=== PATIENT | male | born 1945 | race Caucasian/White ===

== ENCOUNTER 2018-04-26 13:15 | Inpatient (IN) | payer OTHER ==
[~2018-04-26] VITALS: Ht 170.2 cm; Wt 107.8 kg
[2018-04-26 15:57] VITALS: BP 108/64
[2018-04-26 15:59] LABS: APPEARANCE,URINE Clear (CLEAR); BILIRUBIN,URINE Negative (NEGATIVE); COLOR,URINE Dark Yellow (YELLOW); GLUCOSE, URINE (UA) Negative (NEGATIVE); KETONES,URINE Trace mg/dL (NEGATIVE); LEUKOCYTE ESTERASE ,URINE Negative (NEGATIVE); NITRATE,URINE Negative (NEGATIVE); OCCULT BLOOD,URINE Negative (NEGATIVE); PROTEIN,URINE Trace (NEGATIVE)
[2018-04-26 16:10] LABS: INR 1.28 (0.85-1.15); PARTIAL THROMBOPLASTIN TIME 29.4 SEC (26.3-35.5); PROTHROMBIN TIME 13.4 SEC (9.6-11.6)
[2018-04-26 16:20] LABS: BACTERIA,URINE None Seen /HPF (None Seen); MUCUS,URINE Few LPF (None Seen); RBC,URINE None Seen /HPF (0-1); SQUAMOUS EPITHELIAL CELL,UR 0-2 /HPF (0-2); WBC,URINE None Seen /HPF (0-1)
[2018-04-26] MEDS ORDERED: [UNRECOGNIZED DRUG - CODE] PO (16:20)
[2018-04-26] MEDS ORDERED: WARF2.5T47 PO (16:20)
[2018-04-26] MEDS ORDERED: WARF2.5T85 PO (16:20)
[2018-04-26] MEDS ORDERED: MELO-106 PO (16:20)
[2018-04-26] MEDS ORDERED: LOSA100T20 PO (16:20)
[2018-04-26] MEDS ORDERED: ASPI-555 PO (16:20)
[2018-04-26] MEDS ORDERED: PROP60TA20 PO (16:20)
[2018-04-26] MEDS ORDERED: DIGO125T17 PO (16:20)
[2018-04-29] VITALS (21 sets, daily range): BP systolic 97–144; BP diastolic 54–104
[2018-04-29] MEDS ORDERED: CEFAZOLIN 3GM /D5W 100ML 100 ML IV SCH (06:00)
[2018-04-29] MEDS ORDERED: CEFAZOLIN SODIUM 1 GM VIAL ONE ×3 (07:01→08:10)
[2018-04-29] MEDS ORDERED: LACTATED RINGERS 1000ML 1,000 ML IV ONE (07:01)
[2018-04-29] MEDS ORDERED: THROMBIN-JMI 5000 UNIT/VIAL TP ONE (07:38)
[2018-04-29] MEDS ORDERED: LIDOCAINE PF 2% 5ML ABBOJECT ONE (07:47)
[2018-04-29] MEDS ORDERED: SUCCINYLCHOLINE CHLORIDE 20 MG/ML 10 ML VIAL ONE (07:47)
[2018-04-29] MEDS ORDERED: FENTANYL CITRATE PF 50 MCG/1 ML 2ML VIAL ONE ×2 (07:47→10:21)
[2018-04-29] MEDS ORDERED: PROPOFOL 10 MG/ML 20ML VIAL IV ONE (07:47)
[2018-04-29] MEDS ORDERED: ROCURONIUM 10MG/1ML SYR 10 MG/ML ML ONE (07:47)
[2018-04-29] MEDS ORDERED: ROPIVACAINE 0.5% 5MG/ML 30ML IJ ONE (07:52)
[2018-04-29] MEDS ORDERED: DEXAMETHASONE SOD PHOSPHATE 4 MG/ML 1ML VIAL ONE ×2 (07:53→07:54)
[2018-04-29] MEDS ORDERED: GLYCOPYRROLATE 1 MG/5 ML SYRINGE ONE (08:34)
[2018-04-29] MEDS ORDERED: BUPIVACAINE/EPI/PF 0.25% 30ML VIAL IJ ONE (08:37)
[2018-04-29] MEDS: CEFAZOLIN SODIUM 1 GM VIAL ONE ×2 (10:02→10:25)
[2018-04-29] MEDS ORDERED: ONDANSETRON HCL 4 MG/2 ML VIAL ONE (10:20)
[2018-04-29] MEDS ORDERED: POTASSIUM CHLORIDE 10% ELIXIR 20 MEQ/15 ML UDCUP PO PRN (10:30)
[2018-04-29] MEDS ORDERED: CALCIUM CARBONATE 500 MG TABLET PO PRN (10:30)
[2018-04-29] MEDS: ACETAMINOPHEN EXTRA STRENGTH 500 MG TABLET PO SCH ×2 (10:30→20:00)
[2018-04-29] MEDS ORDERED: ONDANSETRON HCL 4 MG/2 ML VIAL IVP PRN (10:30)
[2018-04-29] MEDS ORDERED: TRAMADOL HCL 50 MG TABLET PO PRN (10:30)
[2018-04-29] MEDS ORDERED: FERROUS FUMARATE 324 MG TABLET PO PRN (10:30)
[2018-04-29] MEDS ORDERED: LIDOCAINE HCL-MPF 1% 2ML VIAL IVP PRN (10:30)
[2018-04-29] MEDS ORDERED: DiphenhydrAMINE HCL 50 MG/ML VIAL IVP PRN (10:30)
[2018-04-29] MEDS: WARFARIN SODIUM 5 MG TAB PO SCH ×2 (10:30→18:10)
[2018-04-29] MEDS ORDERED: TEMAZEPAM 15 MG CAPSULE PO PRN (10:30)
[2018-04-29] MEDS ORDERED: POTASSIUM CHLORIDE 20MEQ/100ML 100 ML IV PRN (10:30)
[2018-04-29] MEDS ORDERED: POTASSIUM CHLORIDE 20 MEQ ERTAB PO PRN (10:30)
[2018-04-29] MEDS ORDERED: MEPERIDINE-PF 25 MG/ML SYG ONE ×2 (11:14→11:24)
[2018-04-29] MEDS: SODIUM CHLORIDE 0.9% 1000ML 1,000 ML IV SCH ×2 (11:55→20:00)
[2018-04-29] MEDS: OXYCODONE HCL 5 MG TAB PO PRN ×2 (12:21→21:16)
[2018-04-29] MEDS ORDERED: WARFARIN SODIUM 2.5 MG TAB PO SCH ×2 (12:30)
[2018-04-29] MEDS ORDERED: PHARMACY COMMUNICATION MISC SCH (14:15)
[2018-04-29] MEDS: WARFARIN SODIUM 2.5 MG TAB PO SCH (16:00)
[2018-04-29] MEDS ORDERED: WARFARIN SODIUM 5 MG TAB ONE (17:37)
[2018-04-29] MEDS: FAMOTIDINE 20MG TAB 20 MG TAB PO SCH (19:57)
[2018-04-29] MEDS: ASPIRIN 81MG TAB.CHEW PO SCH (19:57)
[2018-04-29] MEDS: PREGABALIN 25 MG CAP PO SCH (19:57)
[2018-04-29] MEDS: PROPRANOLOL HCL 20 MG TAB PO SCH (19:58)
[2018-04-29] MEDS: CEFAZOLIN 3GM /D5W 100ML 100 ML IV SCH (20:00)
[2018-04-29] MEDS ORDERED: PROPRANOLOL HCL 60 MG PO SCH (21:00)
[2018-04-29] MEDS ORDERED: NON-FORMULARY MEDICATION 1 EACH (Aspirin (Aspir 81) 81 MG) PO SCH (21:00)
[2018-04-30 00:09] VITALS: BP 119/70
[2018-04-30] MEDS: OXYCODONE HCL 5 MG TAB PO PRN ×3 (03:27→20:43)
[2018-04-30] MEDS: CEFAZOLIN 3GM /D5W 100ML 100 ML IV SCH (03:27)
[2018-04-30] MEDS: ACETAMINOPHEN EXTRA STRENGTH 500 MG TABLET PO SCH ×3 (03:27→18:30)
[2018-04-30 04:00] LABS: HEMATOCRIT 41.6 % (42-54); MEAN CORPUSCULAR HEMOGLOBIN 33.8 pg (27.0-33.0); MEAN CORPUSCULAR HGB CONC 33.4 g/dL (32.0-36.0); MEAN CORPUSCULAR VOLUME 101.1 fL (79-99); PLATELET COUNT (AUTO) 135 K/uL (130-400); RED BLOOD CELL COUNT(AUTO) 4.11 MIL/uL (4.50-6.20); RED CELL DISTRIBUTION WIDTH 12.4 % (11.0-15.5); WHITE BLOOD COUNT (AUTO) 13.5 K/uL (4.8-10.8)
[2018-04-30 04:08] VITALS: BP 106/61
[2018-04-30 04:13] LABS: POTASSIUM 4.9 mmol/L (3.5-5.1)
[2018-04-30] MEDS: SODIUM CHLORIDE 0.9% 1000ML 1,000 ML IV SCH (05:32)
[2018-04-30 06:15] LABS: INR 1.06 (0.85-1.15); PROTHROMBIN TIME 11.1 SEC (9.6-11.6)
[2018-04-30 08:12] VITALS: BP 138/77
[2018-04-30] MEDS ORDERED: LOSARTAN 100 MG TABLET PO SCH (09:00)
[2018-04-30] MEDS ORDERED: DIGOXIN 125 MCG PO SCH (09:00)
[2018-04-30] MEDS: CHOLECALCIFEROL 2000 UNIT PO SCH (09:00)
[2018-04-30] MEDS: TAMSULOSIN HCL 0.4 MG CAP.ER.24H PO SCH (10:56)
[2018-04-30] MEDS: KETOROLAC TROMETHAMINE 15MG/ML IV PRN (10:56)
[2018-04-30] MEDS: LOSARTAN 50 MG TABLET PO SCH (10:56)
[2018-04-30] MEDS: FAMOTIDINE 20MG TAB 20 MG TAB PO SCH ×2 (10:58→20:34)
[2018-04-30] MEDS: POLYETHYLENE GLYCOL 3350 17 GM POWD.PACK PO SCH (10:58)
[2018-04-30] MEDS: PREGABALIN 25 MG CAP PO SCH ×2 (10:58→20:34)
[2018-04-30 11:29] VITALS: BP 126/63
[2018-04-30] MEDS: WARFARIN SODIUM 2.5 MG TAB PO SCH (16:00)
[2018-04-30 16:25] VITALS: BP 149/72
[2018-04-30] MEDS ORDERED: WARFARIN SODIUM 5 MG TAB ONE (18:54)
[2018-04-30 20:04] VITALS: BP 130/69
[2018-04-30] MEDS: ASPIRIN 81MG TAB.CHEW PO SCH (20:34)
[2018-04-30] MEDS: PROPRANOLOL HCL 20 MG TAB PO SCH (20:35)
[2018-05-01 00:04] VITALS: BP 119/72
[2018-05-01] MEDS: ACETAMINOPHEN EXTRA STRENGTH 500 MG TABLET PO SCH ×3 (02:02→17:41)
[2018-05-01 04:04] VITALS: BP 108/71
[2018-05-01] MEDS: OXYCODONE HCL 5 MG TAB PO PRN ×3 (05:07→12:00)
[2018-05-01 07:47] VITALS: BP 117/68
[2018-05-01] MEDS: POLYETHYLENE GLYCOL 3350 17 GM POWD.PACK PO SCH (08:29)
[2018-05-01] MEDS: FAMOTIDINE 20MG TAB 20 MG TAB PO SCH (08:29)
[2018-05-01] MEDS: PREGABALIN 25 MG CAP PO SCH (08:30)
[2018-05-01] MEDS: TAMSULOSIN HCL 0.4 MG CAP.ER.24H PO SCH (08:30)
[2018-05-01] MEDS: LOSARTAN 50 MG TABLET PO SCH (08:30)
[2018-05-01] MEDS: CHOLECALCIFEROL 2000 UNIT PO SCH (08:34)
[2018-05-01] MEDS: KETOROLAC TROMETHAMINE 15MG/ML IV PRN (08:42)
[2018-05-01] MEDS ORDERED: WARFARIN SODIUM 2.5 MG TAB PO SCH ×2 (09:00→16:00)
[2018-05-01 16:37] VITALS: BP 92/50
[2018-05-01] MEDS ORDERED: HYDR-4457 PO (18:07)
[2018-05-02] MEDS ORDERED: BISACODYL 10 MG SUPP.RECT RC PRN (10:30)
[2018-05-03] MEDS ORDERED: WARFARIN SODIUM 2.5 MG TAB PO SCH (09:00)
== END 2018-05-01 19:01 | disposition home health service (06) | DRG 470 ==
LOC: EDSTATUS 13:15 → DAHIP 04-29 06:20 → 4AH 04-29 11:49
PROVIDERS: ADMIT Orthopaedic Surgery; ATTEND Orthopaedic Surgery
PROC: 0SRD0J9 Replacement of Left Knee Joint with Synthetic Substitute, Cemented, Open Approach (ICD-10-PCS; principal; 2018-04-29 08:24)
DX: M17.12 Unilateral primary osteoarthritis, left knee (principal); I48.91 Unspecified atrial fibrillation; E66.9 Obesity, unspecified; G25.81 Restless legs syndrome; I10 Essential (primary) hypertension; G89.29 Other chronic pain; G56.03 Carpal tunnel syndrome, bilateral upper limbs; Z96.651 Presence of right artificial knee joint; Z68.37 Body mass index [BMI] 37.0-37.9, adult; Z88.8 Allergy status to other drugs, medicaments and biological substances; Z91.048 Other nonmedicinal substance allergy status; Z80.9 Family history of malignant neoplasm, unspecified
CPT/HCPCS: 36415; 80048; 81001; 85027; 85610; 85730; 88305; 88311; 93005; J0330; J0690; J1100; J1885; J2001; J2175; J2405; J2704; J2795; J3010; J3490; J7030; J7120

== ENCOUNTER 2020-06-16 05:51 | Day surgery (SDC) | payer OTHER ==
[2020-06-09 10:21] LABS: BASOPHILS % (AUTO) 0.6 % (0.0-5.0); EOSINOPHILS % (AUTO) 4.6 % (0.0-8.0); HEMATOCRIT 47.5 % (42-54); LYMPHOCYTES % (AUTO) 21.3 % (21.0-51.0); MEAN CORPUSCULAR HEMOGLOBIN 34.2 pg (27.0-33.0); MEAN CORPUSCULAR HGB CONC 32.8 g/dL (32.0-36.0); MEAN CORPUSCULAR VOLUME 104.2 fL (79-99); MONOCYTES % (AUTO) 10.9 % (3.0-13.0); PLATELET COUNT (AUTO) 166 K/uL (130-400); RED BLOOD CELL COUNT(AUTO) 4.56 MIL/uL (4.50-6.20); WHITE BLOOD COUNT (AUTO) 7.2 K/uL (4.8-10.8)
[2020-06-09 11:01] LABS: CREATININE 0.9 mg/dL (0.5-1.5)
[2020-06-09 11:06] LABS: POTASSIUM 4.4 mmol/L (3.5-5.1)
[2020-06-15 17:23] VITALS: BP 146/85
[2020-06-16] VITALS (18 sets, daily range): BP systolic 93–144; BP diastolic 38–89
[~2020-06-16] VITALS: Ht 170.2 cm; Wt 118.1 kg
[~2020-06-16 05:51] MED LIST: APIX5TAB PO; DIGO125T17 PO; LOSA50TA64 PO; MELO-106 PO; PROP60TA20 PO; ROPI0.5T7 PO
[2020-06-16] MEDS ORDERED: LACTATED RINGERS 1000ML 1,000 ML IV ONE (06:10)
[2020-06-16] MEDS: CEFAZOLIN SODIUM 1 GM VIAL ONE ×2 (06:43→09:20)
[2020-06-16] MEDS ORDERED: CEFAZOLIN SODIUM 1 GM VIAL ONE (07:43)
[2020-06-16] MEDS ORDERED: ONDANSETRON HCL 4 MG/2 ML VIAL ONE (08:30)
[2020-06-16] MEDS ORDERED: LIDOCAINE PF 2% 5ML ABBOJECT ONE (08:30)
[2020-06-16] MEDS ORDERED: FENTANYL CITRATE PF 50 MCG/1 ML 2ML VIAL ONE (08:30)
[2020-06-16] MEDS ORDERED: DEXAMETHASONE SOD PHOSPHATE 10MG/ML 1ML VIAL ONE (08:30)
[2020-06-16] MEDS ORDERED: MIDAZOLAM HCL 1 MG/ML 2ML VIAL ONE (08:31)
[2020-06-16] MEDS ORDERED: PROPOFOL 10 MG/ML 20ML VIAL IV ONE (08:31)
[2020-06-16] MEDS ORDERED: MEPERIDINE-PF 25 MG/ML SYG ONE (08:33)
[2020-06-16] MEDS ORDERED: ROCURONIUM 10MG/1ML SYR 10 MG/ML ML ONE (08:36)
[2020-06-16] MEDS ORDERED: BUPIVACAINE/PF 0.25% 10ML VIAL IJ ONE (08:44)
[2020-06-16] MEDS ORDERED: EPHEDRINE SULFATE 50 MG/ML AMPULE ONE (09:21)
[2020-06-16] MEDS ORDERED: HETASTARCH IN 0.9 % NACL 500 ML IV ONE (09:24)
[2020-06-16] MEDS ORDERED: PHENYLEPHRINE HCL 10 MG/ML 1ML VIAL IV ONE (09:27)
[2020-06-16] MEDS ORDERED: ACET1TAB25 PO (10:02)
[2020-06-16] MEDS ORDERED: CEPH500B PO (10:02)
== END 2020-06-16 11:55 | disposition home or self-care (01) ==
LOC: DAH 05:51
PROVIDERS: ATTEND Orthopaedic Surgery
DX: M65.342 Trigger finger, left ring finger (principal); I25.10 Atherosclerotic heart disease of native coronary artery without angina pectoris; I10 Essential (primary) hypertension; I48.20 Chronic atrial fibrillation, unspecified; G25.81 Restless legs syndrome; M19.90 Unspecified osteoarthritis, unspecified site; Z96.651 Presence of right artificial knee joint; Z98.890 Other specified postprocedural states; Z98.1 Arthrodesis status; Z79.899 Other long term (current) drug therapy; Z20.828 Contact with and (suspected) exposure to other viral communicable diseases
CPT/HCPCS: 26055; 36415; 80048; 85025; 93005; A4215; A4221; A4222; A4223; A4649; A4657; A4663; A4930; A6223; A6445; C9803; J0690 ×2; J1100; J2001; J2175; J2250; J2370; J2405; J2704; J3010; J3490 ×3; J7120; U0003